=== PATIENT | male | born 1980 ===

== ENCOUNTER 2023-10-09 14:48 | Emergency (ER) | payer BC ==
[2023-10-09] MEDS: Benzocaine 20% Topical Spray UD MUCMEM STA (15:36)
== END 2023-10-09 15:49 | disposition home or self-care (01) ==
LOC: MW.ED 14:48
DX: K04.7 Periapical abscess without sinus (principal); E10.9 Type 1 diabetes mellitus without complications; F17.210 Nicotine dependence, cigarettes, uncomplicated; Z79.4 Long term (current) use of insulin; Z88.0 Allergy status to penicillin
CPT/HCPCS: 41800; 99283; A9270